=== PATIENT | female | born 1980 | race Hispanic/Latino ===

== ENCOUNTER 2023-01-29 11:05 | Inpatient (IN) | payer SELFPAY ==
[2023-01-29] MEDS ORDERED: MORPHINE 4 MG/ML SYR ONE (11:39)
[2023-01-29] MEDS ORDERED: NA CHLORIDE 0.9% 1,000 ML ONE (11:39)
[2023-01-29] MEDS ORDERED: ONDANSETRON 4 MG/2 ML VIAL ONE (11:39)
[2023-01-29 11:48] LABS: Absolute Lymphocytes (CBC) 1.8 K/uL (0.7-4.9); Hematocrit 39.5 % (36.0-45.0); Lymphocytes % 15.8 % (15.3-44.8); MCV 94.5 fL (80-100); MPV 8.3 fL (7.6-11.3); RBC Red Blood Cell Count 4.18 M/uL (3.86-4.86)
[2023-01-29 12:05] LABS: Albumin 3.9 g/dL (3.4-5.0); Bilirubin Total 0.5 mg/dL (0.2-1.0); Potassium 3.4 mEq/L (3.5-5.1); Protein, Total 7.7 g/dL (6.4-8.2)
--- NOTE | 2023-01-29 12:49 | RAD REPORT ---
EXAM DESCRIPTION: CT - Abdomen Pelvis W Contrast - 01/29/2023 12:31 pm CLINICAL HISTORY: Abdominal pain COMPARISON: none. TECHNIQUE: Computed axial tomography of the abdomen pelvis was obtained. 100 cc Isovue-300 was admin istered intravenously. Oral contrast was not requested which limits evaluation of bowel and appendix All CT scans are performed using dose optimization technique as appropriate and may include automated exposure control or mA/KV adjustment according to patient size. FINDINGS: Fatty liver Multiple gallstones. 14 millimeter stone gallbladder neck. Gallbladder wall appears mildly thickened. Mild gallbladder distention Spleen, pancreas, adrenals kidneys are unremarkable Normal appendix No evidence of diverticulitis. 4 centimeter right ovarian cyst without significant free fluid. 5 centimeter complex cystic structure left adnexa containing septations and calcification. No fat vis ion IMPRESSION: Cholelithiasis. Mild gallbladder wall thickening probably indicates cholecystitis 5 centimeter complex cystic structure left adnexa may represent a benign complex ovarian cyst. Ovaria n cystadenoma can also have this appearance. Followup ultrasound in couple months is recommended for re-evaluation
[2023-01-29] MEDS ORDERED: HYDROMORPHONE HCL 1 MG/ML INJ ONE (13:15)
--- NOTE | 2023-01-29 13:19 | ER ---
Nurse's Notes [facility] Name: Diamond Rahman Age: 42 yrs Sex: Female : 1980 Arrival Date: 01/29/2023 Time: 11:05 Bed 18 Private MD: Diagnosis: Acute cholecystitis Presentation: 01/29 11:22 Chief complaint: Patient states: R sided abd pain since last night. + nausea and ll1 diarrhea. No fever. Coronavirus screen: Client denies travel out of the [place] in the last 14 days. At this time, the client does not indicate any symptoms associated with coronavirus-19. Ebola Screen: Patient denies travel to an Ebola-affected area in the 21 days before illness onset. Initial Sepsis Screen: Does the patient meet any 2 criteria? No. Patient's initial sepsis screen is negative. Does the patient have a suspected source of infection? Yes: Acute abdominal pain. Risk Assessment: Do you want to hurt yourself or someone else? Patient reports no desire to harm self or others. Onset of symptoms was January 28, 2023. 11:22 Method Of Arrival: Ambulatory ll1 11:22 Acuity: JT 3 ll1 Triage Assessment: 11:24 General: Appears uncomfortable, Behavior is calm, cooperative, appropriate for age. ll1 Pain: Complains of pain in abdomen Quality of pain is described as aching. GI: Reports lower abdominal pain, upper abdominal pain, bloating, diarrhea, nausea. 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 - Social history:: Smoking status: Patient denies any tobacco usage or history of. Screenin:03 [facility] ED Fall Risk Assessment (Adult) Score/Fall Risk Level 0 - 2 = Low Risk ll1 Oriented to surroundings, Maintained a safe environment, Educated pt \T\ family on fall prevention, incl call for assistance when getting out of bed, Hourly rounding (assess needs \T\ fall precautionary measures) done. Abuse screen: Denies threats or abuse. Nutritional screening: No deficits noted. Tuberculosis screening: No symptoms or risk factors identified. Assessment: 12:03 Reassessment: No changes from previously documented assessment. Patient and/or family ll1 updated on plan of care and expected duration. Pain level reassessed. Patient is alert, oriented x 3, equal unlabored respirations, skin warm/dry/pink. 12:23 Reassessment: No changes from previously documented assessment. To CT via wheelchair. ll1 13:12 Reassessment: No changes from previously documented assessment. Patient and/or family ll1 updated on plan of care and expected duration. Pain level reassessed. Patient is alert, oriented x 3, equal unlabored respirations, skin warm/dry/pink. 15:40 Reassessment: No changes from previously documented assessment. Patient and/or family ll1 updated on plan of care and expected duration. Pain level reassessed. Patient is alert, oriented x 3, equal unlabored respirations, skin warm/dry/pink. 15:46 GI: Bowel sounds present X 4 quads. Abd is soft and non tender X 4 quads. ll1 Vital Signs: 11:22 BP 153 / 89; Pulse 76; Resp 16; Temp 98.9; Pulse Ox 100% ; Weight 68.49 kg; Pain 10/10; ll1 13:15 BP 110 / 70; Pulse 77; Pulse Ox 99% ; ll1 14:30 BP 120 / 83; Pulse 77; Pulse Ox 98% ; ll1 15:39 BP 128 / 73; Pulse 81; Resp 16; Pulse Ox 100% ; ll1 11:22 Pain Scale: Adult ll1 ED Course: 11:09 Patient arrived in ED. ts1 11:10 Katie Doyle FNP is PHCP. jh7 11:11 Jose Gibbs MD is Attending Physician. jh7 11:16 Zaki Paz, CHERI is Primary Nurse. ll1 11:17 Arm band placed on Patient placed in an exam room, on a stretcher. ll1 11:23 Patient has correct armband on for positive identification. Placed in gown. Bed in low mm9 position. Call light in reach. Side rails up X 1. Warm blanket given. body design checker on. Pulse ox on. 11:24 Triage completed. ll1 11:45 Initial lab(s) drawn, by me, sent to lab. Urine collected: clean catch specimen, mm9 cloudy. Inserted saline lock: 22 gauge in left antecubital area, using aseptic technique. Blood collected. 11:47 CBC with Diff Sent. mm9 11:47 CMP Sent. mm9 11:47 Lipase Sent. mm9 11:47 Urinalysis w/ reflexes Sent. mm9 12:00 PREGU Sent. mm9 12:03 Missed attempt(s): 22 gauge in left in right antecubital area. Bleeding controlled, ll1 band aid applied, catheter tip intact. 12:18 Inserted saline lock: 20 gauge in right antecubital area, using aseptic technique. hb ,using aseptic technique. by Katie HUNG Blood collected. 12:33 CT Abd/Pelvis - IV Contrast Only In Process Unspecified. EDMS 13:18 Tapan Rojas is Hospitalizing Provider. [facility] 15:46 No provider procedures requiring assistance completed. Patient admitted, IV remains in ll1 place. Administered Medications: 12:18 Drug: Ondansetron IVP 4 mg Route: IVP; Site: right antecubital; ll1 13:12 Follow up: Response: No adverse reaction 1 12:20 Drug: morphine IVP or IV 4 mg Route: IVP; Infused Over: 4 mins; Site: right antecubital;ll1 13:12 Follow up: Response: No adverse reaction; Pain is unchanged, physician notified; RASS: ll1 Alert and Calm (0) 12:22 Drug: NS 0.9% IV 1000 ml Route: IV; Rate: 1 bolus; Site: right antecubital; ll1 15:40 Follow up: Response: No adverse reaction; IV Status: Completed infusion; IV Intake: ll1 1000ml 13:12 Drug: HYDROmorphone IVP 1 mg Route: IVP; Site: right antecubital; ll1 15:40 Follow up: Response: No adverse reaction; Pain is decreased; RASS: Alert and Calm (0) 1 Medication: 12:04 VIS not applicable for this client. ll1 Intake: 15:40 IV: 1000ml; Total: 1000ml. 1 Outcome: 13:19 Decision to Hospitalize by Provider. [facility] 15:46 Admitted to Med/surg accompanied by tech, via wheelchair, room 406, with chart, Report ll1 called to Leeann Medina RN 15:46 Condition: stable 15:46 Instructed on the need for admit. 15:58 Patient left the ED. ll1 Signatures: Dispatcher [employer] Brook Watt RN RN hb Lewis, Lynsay, RN RN ll1 Katie Doyle, TEACHER LIP READING TEACHER LIP READING jh7 Radha Serrato mm9 [place], PAS PAS ts1 Corrections: (The following items were deleted from the chart) 15:46 15:39 BP 128 / 73; Pulse 94bpm; Resp 16bpm; Pulse Ox 100%; ll1 ll1
--- NOTE | 2023-01-29 13:19 | EDPHYS ---
Physician Documentation [facility] Name: Diamond Rahman Age: 42 yrs Sex: Female : 1980 Arrival Date: 01/29/2023 Time: 11:05 Bed 18 Private MD: AMITA Physician Jose Gibbs HPI: 01/29 11:21 This 42 yrs old Female presents to ER via Ambulatory with complaints of jh7 Abdominal Pain. 11:21 The patient presents with abdominal pain in the right upper quadrant. Onset: The jh7 symptoms/episode began/occurred last night. The symptoms radiate to right back. Associated signs and symptoms: Pertinent positives: nausea, vomiting, and diarrhea, Pertinent negatives: chest pain. The symptoms are described as dull, shooting. 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 - Social history:: Smoking status: Patient denies any tobacco usage or history of. ROS: 11:21 Constitutional: Negative for fever, chills, and weight loss, Eyes: Negative for injury, jh7 pain, redness, and discharge, Cardiovascular: Negative for chest pain, palpitations, and edema, Respiratory: Negative for shortness of breath, cough, wheezing, and pleuritic chest pain, Back: Negative for injury and pain, MS/Extremity: Negative for injury and deformity, Skin: Negative for injury, rash, and discoloration, Neuro: Negative for headache, weakness, numbness, tingling, and seizure. 11:21 Abdomen/GI: Positive for abdominal pain, nausea, vomiting, and diarrhea, Negative for abdominal distension, hematemesis, rectal pain, rectal bleeding. 11:21 All other systems are negative. Exam: 11:21 Head/Face: Normocephalic, atraumatic. Eyes: Pupils equal round and reactive to light, jh7 extra-ocular motions intact. Lids and lashes normal. Conjunctiva and sclera are non-icteric and not injected. Cornea within normal limits. Periorbital areas with no swelling, redness, or edema. Neck: Trachea midline, no thyromegaly or masses palpated, and no cervical lymphadenopathy. Supple, full range of motion without nuchal rigidity, or vertebral point tenderness. No Meningismus. Cardiovascular: Regular rate and rhythm with a normal S1 and S2. No gallops, murmurs, or rubs. Normal PMI, no JVD. No pulse deficits. Respiratory: Lungs have equal breath sounds bilaterally, clear to auscultation and percussion. No rales, rhonchi or wheezes noted. No increased work of breathing, no retractions or nasal flaring. Back: No spinal tenderness. No costovertebral tenderness. Full range of motion. Skin: Warm, dry with normal turgor. Normal color with no rashes, no lesions, and no evidence of cellulitis. MS/ Extremity: Pulses equal, no cyanosis. Neurovascular intact. Full, normal range of motion. Neuro: Awake and alert, GCS 15, oriented to person, place, time, and situation. Motor strength 5/5 in all extremities. Sensory grossly intact. Normal gait. 11:21 Constitutional: The patient appears alert, awake, in obvious pain. 11:21 Abdomen/GI: Inspection: abdomen appears normal, Bowel sounds: normal, Palpation: soft, moderate abdominal tenderness, in the right upper quadrant. Vital Signs: 11:22 BP 153 / 89; Pulse 76; Resp 16; Temp 98.9; Pulse Ox 100% ; Weight 68.49 kg; Pain 10/10; ll1 13:15 BP 110 / 70; Pulse 77; Pulse Ox 99% ; ll1 14:30 BP 120 / 83; Pulse 77; Pulse Ox 98% ; ll1 15:39 BP 128 / 73; Pulse 81; Resp 16; Pulse Ox 100% ; ll1 11:22 Pain Scale: Adult ll1 MDM: 11:11 Patient medically screened. [facility] 13:15 Differential diagnosis: cholecystitis, Cholelithiasis, gastritis, non-specific abd jh7 pain, pancreatitis. Data reviewed: vital signs, nurses notes, lab test result(s), radiologic studies, CT scan. Consideration of Admission/Observation Patient was admitted/placed on observation. Management of patient was discussed with the following: Hospitalist: Dr. Rojas. Chief Hospital Administrator: Dr. Serrato, general surgery. Management of patient was discussed with the following: Spoke to Dr. Serrato regarding admission. He advised to admit the patient, have her n.p.o. now and recheck her LFTs tomorrow morning. That we will determine if she needs to have a cholecystectomy tomorrow or if it can wait until Tuesday. He also requested that she be admitted to the hospitalist due to her history of hypertension and to consult him.. I considered the following discharge prescriptions or medication management in the emergency department Medications were administered in the Emergency Department. See MAR. Historians other than the Patient: Spouse/Significant Other: . Care significantly affected by the following chronic conditions: Hypertension. Counseling: I had a detailed discussion with the patient and/or guardian regarding: the historical points, exam findings, and any diagnostic results supporting the discharge/admit diagnosis, the need for further work-up and treatment in the hospital. Response to treatment: the patient's symptoms have mildly improved after treatment. 01/29 11:26 Order name: CBC with Diff; Complete Time: 12:47 [facility] 01/29 11:26 Order name: CMP; Complete Time: 12:47 [facility] 01/29 11:26 Order name: Lipase; Complete Time: 12:47 [facility] 01/29 11:26 Order name: Urinalysis w/ reflexes [facility] 01/29 11:58 Order name: PREGU eb 01/29 11:26 Order name: CT Abd/Pelvis - IV Contrast Only; Complete Time: 12:50 [facility] 01/29 11:26 Order name: IV Saline Lock; Complete Time: 11:31 [facility] 01/29 11:26 Order name: Labs collected and sent; Complete Time: 11:31 [facility] 01/29 13:16 Order name: NPO; Complete Time: 13:24 [facility] Administered Medications: 12:18 Drug: Ondansetron IVP 4 mg Route: IVP; Site: right antecubital; ll1 13:12 Follow up: Response: No adverse reaction ll1 12:20 Drug: morphine IVP or IV 4 mg Route: IVP; Infused Over: 4 mins; Site: right antecubital;ll1 13:12 Follow up: Response: No adverse reaction; Pain is unchanged, physician notified; RASS: ll1 Alert and Calm (0) 12:22 Drug: NS 0.9% IV 1000 ml Route: IV; Rate: 1 bolus; Site: right antecubital; 1 15:40 Follow up: Response: No adverse reaction; IV Status: Completed infusion; IV Intake: ll1 1000ml 13:12 Drug: HYDROmorphone IVP 1 mg Route: IVP; Site: right antecubital; 1 15:40 Follow up: Response: No adverse reaction; Pain is decreased; RASS: Alert and Calm (0) ll1 Disposition Summary: 01/29/23 13:19 Hospitalization Ordered Hospitalization Status: Inpatient Admission [facility] Provider: Tapan Rojas [facility] Location: Telemetry/MedSurg (Inpatient) [facility] Condition: Fair [facility] Problem: new [facility] Symptoms: are unchanged [facility] Bed/Room Type: Standard [facility] Room Assignment: 406(01/29/23 15:23) Diagnosis - Acute cholecystitis [facility] Forms: - Medication Reconciliation Form [facility] - SBAR form [facility] Signatures: Dispatcher [employer] Nakia Avina Lynsay, RN RN 1 Katie Doyle FNP FNP [facility] Corrections: (The following items were deleted from the chart) 13:19 [facility] eb
--- NOTE | 2023-01-29 14:51 | P.HP ---
Certification for Inpatient Patient admitted to: Inpatient With expected LOS: >2 Midnights Practitioner: I am a practitioner with admitting privileges, knowledge of patient current condition, hospital course, and medical plan of care. Services: Services provided to patient in accordance with Admission requirements found in Title 42 Section 412.3 of the Code of Federal Regulations Patient History Date of Service: 01/29/23 Reason for admission: Right upper quadrant pain History of Present Illness: 42-year-old [place]-speaking woman with a history of hypertension, breast mass s tatus post lumpectomy about 3 weeks ago presented to the emergency department with a complaint of sudden onset right upper quadrant abdominal pain of 1 day duration, patient described 8/10 pain, no known relieving aggravating factors. Patient reported associated vomiting, no diarrhea, no fever. Blood work done in the emergency department showed mild leukocytosis. Patient does not meet criteria for sepsis. General surgery Dr. Serrato was contacted who recommended that admission to the hospitalist service, monitoring overnight, and repeat LFT before surgery. - Past Medical/Surgical History -: Hypertension -: Breast mass status post lumpectomy -: Lumpectomy - Family History Mother -: Diabetes - Social History Smoking Status: Never smoker Alcohol use: No CD- Drugs: No Place of Residence: Home Review of Systems Other: Patient denies shortness of breath, no cough, no headache. Except as documented, all other systems reviewed and negative. Physical Examination - Physical Exam General: Alert, In no apparent distress, Oriented x3 HEENT: Atraumatic, PERRLA, Mucous membr. moist/pink, Sclerae nonicteric Neck: Supple, JVD not distended Respiratory: Clear to auscultation bilaterally, Normal air movement Cardiovascular: No edema, Regular rate/rhythm, Normal S1 S2, No murmurs Gastrointestinal: Normal bowel sounds, Soft and benign, Non-distended, Tenderness (Right upper quadrant) Musculoskeletal: No swelling Integumentary: No rashes, No cyanosis Neurological: Normal strength at 5/5 x4 extr Lymphatics: No axilla or inguinal lymphadenopathy - Studies Laboratory Data (last 24 hrs) 01/29/23 11:40: Sodium 133 L, Potassium 3.4 L, BUN 8, Creatinine 0.65, Glucose 108 H, Total Bilirubin 0.5, AST 41 H, ALT 112 H, Alkaline Phosphatase 98, Lipase 29 01/29/23 11:40: WBC 11.60 H, Hgb 13.0, Hct 39.5, Plt Count 256 Assessment and Plan - Problems (Diagnosis) (1) Acute cholecystitis Current Visit: Yes Status: Acute (2) Essential hypertension Current Visit: Yes Status: Acute - Plan Admitted to the medical floor. Empiric IV Rocephin. Pain management as needed. Antiemetics as needed. General surgery consulted. Monitor CMP. Keep n.p.o except medications. Strict n.p.o. at midnight. Continue home antihypertensives. - Advance Directives Does patient have a Living Will: No Does patient have a Durable POA for Healthcare: No
[2023-01-29 16:16] VITALS: BMI 27.6
[2023-01-29] MEDS: MORPHINE 2 MG/ML SYR IV PRN ×2 (16:31→20:31)
[2023-01-29] MEDS: NA CHLORIDE 0.9% 1,000 ML IV SCH (16:32)
[2023-01-29] MEDS: ONDANSETRON 4 MG/2 ML VIAL IV PRN (20:32)
[2023-01-30] MEDS: MORPHINE 2 MG/ML SYR IV PRN ×2 (01:06→07:01)
[2023-01-30] MEDS: NA CHLORIDE 0.9% 1,000 ML IV SCH ×3 (02:36→20:43)
[2023-01-30 04:22] LABS: Absolute Lymphocytes (CBC) 1.7 K/uL (0.7-4.9); Hematocrit 36.1 % (36.0-45.0); Lymphocytes % 12.4 % (15.3-44.8); MCV 94.7 fL (80-100); MPV 8.7 fL (7.6-11.3); RBC Red Blood Cell Count 3.82 M/uL (3.86-4.86)
[2023-01-30 04:40] LABS: Bilirubin Total 0.5 mg/dL (0.2-1.0); Magnesium 1.6 mg/dL (1.6-2.4); Phosphorus 3.1 mg/dL (2.5-4.9); Potassium 3.6 mEq/L (3.5-5.1); Protein, Total 6.3 g/dL (6.4-8.2)
[2023-01-30] MEDS: ONDANSETRON 4 MG/2 ML VIAL IV PRN (07:02)
[2023-01-30] MEDS: CEFTRIAXONE 1,000 MG in NA CHLORIDE 0.9% 50 ML IVPB SCH (08:07)
[2023-01-30] MEDS ORDERED: KCL 20 MEQ/100 mL IVPB 20 MEQ/100 ML BAG IV SCH (09:00)
[2023-01-30] MEDS ORDERED: MAGNESIUM SULFATE 1 gm IVPB 1 GM/100 ML BAG IV ONE (09:00)
[2023-01-30] MEDS ORDERED: POTASSIUM CL SA 10 MEQ TAB PO ONE (09:00)
[2023-01-30] MEDS ORDERED: HYDROCODONE/APAP 10/325 TAB PO PRN (10:37)
[2023-01-30] MEDS: HYDROCODONE/APAP 7.5/325 MG TAB PO PRN ×2 (11:18→17:20)
--- NOTE | 2023-01-30 13:51 | P.PN ---
Subjective Date of Service: 01/30/23 Chief Complaint: Right upper quadrant pain Patient reports persistent right upper quadrant abdominal pain. No fever or nausea or vomiting. Physical Examination - Vital Signs Temperature: 99.2 F Blood Pressure: 133/82 Pulse: 102 Respirations: 16 Pulse Ox (%): 96 - Physical Exam General: Alert, In no apparent distress, Oriented x3 HEENT: Mucous membr. moist/pink Neck: JVD not distended Respiratory: Clear to auscultation bilaterally, Normal air movement Cardiovascular: Regular rate/rhythm, Normal S1 S2 Gastrointestinal: Soft and benign, Non-distended, Tenderness (Right upper quadrant) Musculoskeletal: No swelling, No tenderness Integumentary: No rashes, No cyanosis Neurological: Normal strength at 5/5 x4 extr Assessment And Plan - Current Problems (Diagnosis) (1) Acute cholecystitis Current Visit: Yes Status: Acute (2) Essential hypertension Current Visit: Yes Status: Acute - Plan Continue IV Rocephin. Pain management as needed-[place] and IV morphine. Antiemetics as needed. Surgery Dr. Serrato is planning to evaluate patient today for possible surgery tomorrow Liver enzymes trended down Clear liquid diet per surgery Strict n.p.o. at midnight. Continue home antihypertensives.
--- NOTE | 2023-01-30 14:05 | CON ---
Date of Consultation: 01/30/2023 Diagnosis: Acute cholecystitis, symptomatic cholelithiasis. History Of Present Illness: This is the case of a 42-year-old patient, who comes to us complaining o f 1-day duration of epigastric right upper quadrant pain radiating to the back associated with nausea and vomiting. No fever. No diarrhea. The patient has intractable pain, so the patient was admitte d to the hospital. The patient is from [place]. Past Medical History: Hypertension, breast mass lumpectomy about 3 weeks ago. Past Surgical History: Surgeries also include ovarian cyst removal. Family History: Diabetes. Social History: She does not smoke. She does not drink alcohol. Allergies: NONE. Review of Systems: See HPI with an abdominal pain. Physical Examination: General: The patient is awake, alert. HEENT: Pupils are equal and reactive. Anicteric. Neck: Supple. Chest: Clear. Heart: S1, S2. Abdomen: Epigastric right upper quadrant tenderness. No rebound. Breasts: Deferred. Pelvic: Deferred. Rectal: Deferred. Extremities: Good capillary refill. Laboratory Data: Blood work shows WBC count of 13.3, hemoglobin of 12, platelets of 210. Potassium is 3.6, bicarb is 108, glucose is 89, bilirubin of 0.5, alkaline phosphatase 74. AST and ALT slightl y elevated 21 and 112, today [address] scan of the abdomen and pelvis interpreted by Dr. Ordoñez . This was done since no ultrasound available at this moment, but the CAT scan on its own shows chol elithiasis, mild gallbladder wall thickening, probably cholecystitis. There was a cystic structure o n the left adnexa. Normal appendix, multiple gallstones. Assessment: This is a 42-year-old patient with acute cholecystitis, symptomatic cholelithiasis. She is not from this area. She has intractable pain, admitted to the hospital. Put her n.p.o., antibio tics, and see if she improves to decide if she is going to have surgery done here or go back to where she lives, which is in [place]. Today, she noticed that although it is a little bit better, she is s till having abdominal pain. We are afraid to advance diet. She is only on liquids, so we are going to keep like that n.p.o. after midnight and she wants them to have surgery done tomorrow morning. Th e benefits, alternatives, and risks of laparoscopic possible open cholecystectomy fully explained, wh ich include, but not limited to infection, bleeding, damage to adjacent structures, anesthesia compli cation, choledocholithiasis, bile leak, pancreatitis, [place], and even . She also understands this may not relieve any symptoms. She might need more than one surgical intervention. She understood, s igned a consent. I understand that she may even go tomorrow back to [place]. She knows and she was a dvised the importance of following up with the surgeon in a week from now since there may be some sta ples that need to be removed. We also offered her at least a week from now as 1 of the options to ad socorro to the following up with another doctor, she can also trying to make a telehealth appointment. CONNIE Voice ID: [id number] Report ID: [id number]
[2023-01-31] MEDS: HYDROCODONE/APAP 7.5/325 MG TAB PO PRN ×2 (00:32→21:06)
[2023-01-31 04:32] LABS: Absolute Lymphocytes (CBC) 1.8 K/uL (0.7-4.9); Hematocrit 31.9 % (36.0-45.0); MCV 95.7 fL (80-100); MPV 8.6 fL (7.6-11.3); RBC Red Blood Cell Count 3.34 M/uL (3.86-4.86)
[2023-01-31 04:54] LABS: Albumin 2.4 g/dL (3.4-5.0); Bilirubin Total 0.7 mg/dL (0.2-1.0); Magnesium 1.8 mg/dL (1.6-2.4); Phosphorus 2.3 mg/dL (2.5-4.9); Potassium 3.7 mEq/L (3.5-5.1); Protein, Total 5.7 g/dL (6.4-8.2)
[2023-01-31] MEDS ORDERED: D10W IV PRN (07:37)
[2023-01-31] MEDS: NA CHLORIDE 0.9% 1,000 ML IV SCH ×2 (08:11→16:31)
[2023-01-31] MEDS: lisinopriL 20 MG TAB PO SCH (08:14)
[2023-01-31] MEDS: TAMOXIFEN CITRATE 20 MG PO SCH (08:15)
[2023-01-31] MEDS: CEFTRIAXONE 1,000 MG in NA CHLORIDE 0.9% 50 ML IVPB SCH (08:19)
[2023-01-31] MEDS ORDERED: KCL 20 MEQ/100 mL IVPB 20 MEQ/100 ML BAG IV SCH (09:00)
[2023-01-31] MEDS ORDERED: POTASSIUM PHOS IN 0.9 % NACL 15 MMOL/250 ML BAG IV ONE (09:00)
[2023-01-31] MEDS ORDERED: MAGNESIUM SULFATE 1 gm IVPB 1 GM/100 ML BAG IV ONE (09:00)
[2023-01-31] MEDS ORDERED: propofoL 200 MG/20 ML VIAL IV ONE (09:46)
[2023-01-31] MEDS ORDERED: MIDAZOLAM HCL 2 MG/2 ML INJ ONE (09:46)
[2023-01-31] MEDS ORDERED: FENTANYL CITR 100 MCG/2 ML ONE (09:46)
[2023-01-31] MEDS ORDERED: ONDANSETRON 4 MG/2 ML VIAL ONE (09:47)
[2023-01-31] MEDS ORDERED: KETOROLAC 30 MG/ML INJ ONE (09:47)
[2023-01-31] MEDS ORDERED: ROCURONIUM 50 MG/5 ML VIAL IV ONE (09:47)
[2023-01-31] MEDS ORDERED: dexAMETHasone 10 MG/ML VIAL ONE (09:47)
[2023-01-31] MEDS ORDERED: LIDOCAINE 2% MPF 5 ML VIAL ONE (09:48)
[2023-01-31] MEDS ORDERED: HYDROMORPHONE HCL 1 MG/ML INJ ONE (11:01)
[2023-01-31] MEDS ORDERED: GLYCOPYRROLATE 0.2 MG/ML SYR ONE (11:02)
[2023-01-31] MEDS ORDERED: NEOSTIGMINE 1 MG/ML -10 ML VIAL ONE (11:02)
--- NOTE | 2023-01-31 11:03 | P.BOP ---
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
[2023-01-31] MEDS ORDERED: Ringers Lactate 1,000 ML IV ONE (11:26)
[2023-01-31 11:54] VITALS: O2SAT 95
--- NOTE | 2023-01-31 12:15 | P.PN ---
Subjective Date of Service: 01/31/23 Chief Complaint: Right upper quadrant pain Patient had an episode of hypoglycemia this morning. No recorded fever. Blood pressure has also been soft. Physical Examination - Vital Signs Temperature: 97.3 F Blood Pressure: 97/68 Pulse: 77 Respirations: 16 Pulse Ox (%): 96 - Physical Exam General: Alert, In no apparent distress, Oriented x3 HEENT: Mucous membr. moist/pink Neck: JVD not distended Respiratory: Clear to auscultation bilaterally, Normal air movement Cardiovascular: Regular rate/rhythm, Normal S1 S2 Gastrointestinal: Normal bowel sounds, Soft and benign, Non-distended, Tenderness (Right upper quadrant) Musculoskeletal: No swelling Integumentary: No rashes, No cyanosis Neurological: Normal strength at 5/5 x4 extr Assessment And Plan - Current Problems (Diagnosis) (1) Acute cholecystitis Current Visit: Yes Status: Acute (2) Essential hypertension Current Visit: Yes Status: Acute - Plan Status post lap cholecystectomy today. Patient noted to have edematous gallbladder. HERO drain placed Continue IV Rocephin. Pain management as needed-[place] and IV morphine. Antiemetics as needed. Surgery Dr. Serrato to follow. Diet advancement per Dr. Serrato. Continue home antihypertensives. Continue tamoxifen.
--- NOTE | 2023-01-31 13:04 | OP ---
Date of Procedure: 01/31/2023 Surgeon: Pawan Serrato MD Railroad Firer: Marifer Miller. Preoperative Diagnoses: Acute cholecystitis, symptomatic cholelithiasis. Postoperative Diagnoses: Acute cholecystitis, symptomatic cholelithiasis. Procedure: Laparoscopic cholecystectomy. Estimated Blood Loss: Less than 10 mL. Specimen: Gallbladder. Finding: Acute edematous distended cholecystitis. Anesthesia: General plus local. Drains: HERO #10. Indications: This is the case of a female, who comes to us with above diagnoses. The patient is fro m out of town, but the pain did not involve, so she wants to do the surgery with the condition that s he might have to come back to my office even if she leaves and also understands to stay at least 1 mo re day here in this area. She understood the benefits, alternatives, and risks of the surgery, which include, but not limited to infection, bleeding, damage to adjacent structures, anesthesia complicat ion, choledocholithiasis, bile leak, pancreatitis, CA, and even . She also understands this may not relieve any symptoms. She might need more than one surgical intervention. She understood, sign ed a consent. Procedure In Detail: The patient was brought to the operating room, placed in supine position. Anes thesia was done without complication. Abdominal area was prepped and draped in the usual sterile fas hion. Marcaine 0.5% was injected for local anesthetic followed by sharp incision of the skin in the infraumbilical region. The incision was carried down to fascia, which was opened under direct vision . Peritoneum was encountered, under direct vision. Vicryl #1 placed inside the fascia. Odalis troc ar was carefully introduced. Pneumoperitoneum was obtained. I placed 3 more trocars, 5 mm each one of them in the epigastric right upper quadrant area under direct visualization. It looks like the ar ea of the gallbladder has a lot of edema, very distended, so we placed an Endo needle under direct vi sualization and aspirated the gallbladder content. Needle was removed under direct visualization. A grasper was placed in the fundus of the gallbladder, another grasper in the infundibulum retracting the gallbladder in the inferolateral fashion, exposing the triangle of Calot, obtaining critical view . Cystic duct and cystic artery were clearly isolated, freed circumferentially and a connection betw een those and the gallbladder were clearly identified. I proceeded to ligate those by using at least 3 clips proximal, 1 clip distal, ligation in the middle. Same was done with the cystic artery. No bile leak, no bleeding. The gallbladder was removed from liver using Bovie cauterizer and removed fr om abdominal cavity using EndoCatch through the umbilical incision. The area was inspected once ejannine n. No bile leak, no bleeding. Due to all the inflammation and infection, I decided to leave a HERO dr shelby behind and it was exiting through 1 of the trocar sites. At that moment, I proceeded to remove t he trocars under direct vision. Deflated pneumoperitoneum. Closed the fascia with #1 Vicryl. The f ascia had to be opened a little bit more due to distention and the size of the gallbladder, but we we re able to closed that with Vicryl in a [id number]-[id number] fashion multiple times. Subcutaneous tissue was closed with 3-0 chromic and skin with constantino. HERO was connected to bulb suction. The patient to lerated the procedure well. The patient was sent to recovery in stable condition. We discussed the case with the discharging machine operator and they are going to stay at least overnight here in this area and then come back to this area unless they find a surgeon in wherever they live in [place]. DALE/BRAYDEN Voice ID: [id number] Report ID: [id number]
[2023-01-31] MEDS: MORPHINE 2 MG/ML SYR IV PRN (16:31)
[2023-01-31] MEDS: ONDANSETRON 4 MG/2 ML VIAL IV PRN (23:01)
[2023-02-01] MEDS: MORPHINE 2 MG/ML SYR IV PRN (04:21)
[2023-02-01] MEDS: NA CHLORIDE 0.9% 1,000 ML IV SCH (04:25)
[2023-02-01 06:18] LABS: Absolute Lymphocytes (CBC) 1.2 K/uL (0.7-4.9); Hematocrit 28.8 % (36.0-45.0); Lymphocytes % 11.7 % (15.3-44.8); MCV 95.4 fL (80-100); MPV 9.3 fL (7.6-11.3); RBC Red Blood Cell Count 3.02 M/uL (3.86-4.86)
[2023-02-01 06:39] LABS: Albumin 2.2 g/dL (3.4-5.0); Bilirubin Total 0.3 mg/dL (0.2-1.0); Magnesium 2.1 mg/dL (1.6-2.4); Potassium 4.1 mEq/L (3.5-5.1); Protein, Total 5.5 g/dL (6.4-8.2)
[2023-02-01] MEDS: lisinopriL 20 MG TAB PO SCH (08:15)
[2023-02-01] MEDS: HYDROCODONE/APAP 7.5/325 MG TAB PO PRN (08:18)
[2023-02-01] MEDS: CEFTRIAXONE 1,000 MG in NA CHLORIDE 0.9% 50 ML IVPB SCH (08:19)
--- NOTE | 2023-02-01 08:33 | P.PN ---
Date of Service: 02/01/23 Subjective: ROS: 10 point ROS as noted above, otherwise negative Physical Exam: GEN: Alert, oriented, NAD HEENT: Normal conjunctiva, sclera anicteric CV: Regular rate and rhythm, no edema Pulm: Nonlabored respirations on room air ABD: Soft, nontender, nondistended MSK: No joint tenderness Integumentary: No rashes Neuro: Normal speech, normal affect vitals reviewed Problem List: Acute Cholecystitis Hypertension General Surgery consulted - Dr. Serrato s/p lap cholecystectomy 01/31 advance diet as tolerated Patient noted to have edematous gallbladder. HERO drain placed Continue IV Rocephin Pain management as needed-[place] and IV morphine. Antiemetics as needed. Continue home antihypertensives. Continue tamoxifen. VTE: Lovenox Code: Full Dispo: Home 1-2 days
[2023-02-01] MEDS: TAMOXIFEN CITRATE 20 MG PO SCH (09:00)
[2023-02-01 13:59] VITALS: BP 122/75; TEMP 98
--- NOTE | 2023-02-01 14:11 | P.DS ---
Admission Date: 01/29/23 Discharge Date: 02/01/23 Disposition: ROUTINE DISCHARGE Discharge Condition: FAIR Reason for Admission: Right upper quadrant pain Consultations: General Surgery - Dr. Serrato Brief History of Present Illness: 42yo F, PMH: hypertension, breast mass status post lumpectomy about 3 weeks ago Patient presented to the emergency department with a complaint of sudden onset right upper quadrant abdominal pain of 1 day duration, patient described 8/10 pain, no known relieving aggravating factors. Patient reported associated vomiting, no diarrhea, no fever. Blood work done in the emergency department showed mild leukocytosis. Patient does not meet criteria for sepsis. General surgery Dr. Serrato was contacted who recommended that admission to the hospitalist service, monitoring overnight, and repeat LFT before surgery. Hospital Course: Problem List: Acute Cholecystitis Hypertension Patient presented with RUQ abdominal pain. Initial CT indicated "Mild gallbladder wall thickening probably indicates cholecystitis." General Surgery was consulted. Dr. Serrato performed a Laparoscopic cholecystectomy. During the procedure, she was noted to have an acute edematous gallbladder. A HERO drain was placed. She was given antibiotics and pain medication. She did well post-operatively and was deemed stable for discharge. New Prescriptions: Augmentin [place] Follow up: PCP 3-[address] Serrato - in ~1 week for follow up and HERO drain removal. Physical Exam: GEN: Alert, oriented, NAD HEENT: Normal conjunctiva, sclera anicteric CV: Regular rate and rhythm, no edema Pulm: Nonlabored respirations on room air ABD: Soft, mild RUQ tenderness, nondistended; HERO drain in place with sanguineous drainage Neuro: Normal speech, normal affect Vital Signs/Physical Exam: Temp Pulse Resp BP Pulse Ox 98.0 F 77 16 122/75 96 02/01/23 12:00 02/01/23 12:00 02/01/23 12:00 02/01/23 12:00 02/01/23 12:00 Laboratory Data at Discharge: WBC 10.70 thou/uL (4.3-10.9) 02/01/23 05:15 Hgb 9.6 g/dL (12.0-15.0) L D 02/01/23 05:15 Hct 28.8 % (36.0-45.0) L 02/01/23 05:15 Plt Count 153 thou/uL (152-406) 05/23/23 05:15 Sodium 141 mEq/L (136-145) D 02/01/23 05:15 Potassium 4.1 mEq/L (3.5-5.1) 02/01/23 05:15 BUN 5 mg/dL (7-18) L 02/01/23 05:15 Creatinine 0.38 mg/dL (0.55-1.02) L 02/01/23 05:15 Glucose 121 mg/dL (74-106) H 02/01/23 05:15 Phosphorus 2.3 mg/dL (2.5-4.9) L 01/31/23 04:05 Magnesium 2.1 mg/dL (1.6-2.4) 02/01/23 05:15 Total Bilirubin 0.3 mg/dL (0.2-1.0) 02/01/23 05:15 AST 26 U/L (15-37) 02/01/23 05:15 ALT 56 U/L (13-56) 02/01/23 05:15 Alkaline Phosphatase 68 U/L (45-117) 02/01/23 05:15 Lipase 29 U/L (13-75) 01/29/23 11:40 Home Medications: Lisinopril [Zestril] 20 mg PO DAILY 01/29/23 Tamoxifen Citrate 20 mg PO DAILY 01/29/23 Amox/Clavulanate [Augmentin 875-125 Tab] 1 each PO BID #14 tab 01/31/23 Codeine/APAP [Tylenol W/Codeine #3 tab] 1 tab PO Q6HP PRN #15 tab 02/01/23 New Medications: Amox/Clavulanate [Augmentin 875-125 Tab] 1 each PO BID #14 tab Codeine/APAP [Tylenol W/Codeine #3 tab] 1 tab PO Q6HP PRN #15 tab PRN Reason: Pain Physician Discharge Instructions: Patient presented with RUQ abdominal pain. Initial CT indicated "Mild gal lbladder wall thickening probably indicates cholecystitis." General Surgery was consulted. Dr. Serrato performed a Laparoscopic cholecystectomy. During the procedure, she was noted to have an acute edematous gallbladder. A HERO drain was placed. She was given antibiotics and pain medication. She did well post-operatively and was deemed stable for discharge. New Prescriptions: Augmentin [place] Follow up: PCP 3-[address] Serrato - in ~1 week for follow up and HERO drain removal. Diet: Regular Activity: Ad silvino Followup: Pawan Serrato MD [ACTIVE - CAN ADMIT] - 1 Week (call to schedule an appointment) Unknown,U [Primary Care Provider] - Time spent managing pt's care (in minutes): 45
[2023-02-01] MEDS ORDERED: ENSURE HIGH PROTEIN 237 ML CAN PO SCH (21:00)
== END 2023-02-01 14:50 | disposition home or self-care (01) | DRG 419 ==
LOC: ER 11:05 → ERHOLD 14:34 → 4TH 15:50
PROVIDERS: ADMIT Internal Medicine; ATTEND Hospitalist
PROC: 0W9G40Z Drainage of Peritoneal Cavity with Drainage Device, Percutaneous Endoscopic Approach (ICD-10-PCS; 2023-01-31)
PROC: 0FT44ZZ Resection of Gallbladder, Percutaneous Endoscopic Approach (ICD-10-PCS; principal; 2023-01-31 14:00)
DX: K80.00 Calculus of gallbladder with acute cholecystitis without obstruction (principal); I10 Essential (primary) hypertension; E16.2 Hypoglycemia, unspecified; Z79.899 Other long term (current) drug therapy
CPT/HCPCS: 36415; 74177; 80053; 82947; 83690; 83735; 84100; 85025; 88304; 94010; 96361; 96374; 96375; 99285; J0696; J1100; J1170; J2001; J2250; J2270; J2405; J2704; J2710; J3010; J3475; J7030; J7120; Q9967